=== PATIENT | female | born 1930 | race Caucasian/White ===

== ENCOUNTER 2017-03-05 08:22 | Inpatient (IN) ==
[2017-03-05] MEDS ORDERED: NS 1,000 ML IV ONE ×2 (08:43→13:13)
[2017-03-05] MEDS ORDERED: PROTONIX IV ONE (08:50)
[2017-03-05] MEDS ORDERED: SODIUM CHLORIDE 0.9% INJ ONE (08:50)
--- NOTE | 2017-03-05 08:57 | PROVIDER DOCUMENTATION ---
HPI-Abdominal Pain/GI Problem - General Chief Complaint: GI Bleed Stated Complaint: RECTAL BLEEDING Time Seen by Provider: 03/05/17 08:47 Source: patient, family Home Medications: Home Medication List Medication Instructions Recorded Confirmed Last Taken Type Insulin Aspart [Novolog Flexpen] 100 unit SQ DIRECTED 03/05/17 03/05/17 Unknown History Insulin Glargine,Hum.rec.anlog 1 dose SQ DIRECTED 03/05/17 03/05/17 Unknown History [Lantus Solostar] Levothyroxine [Synthroid] 88 microgm PO DAILY 03/05/17 03/05/17 Unknown History - History of Present Illness-ABD Nature of Presenting Problems: hx of bleeding in past has started to have conitnuous bleeding of clots and blood on asa no diverticulos hx hemorrhoids Abdominal Pain Onset Location: reports: other (none) Pain Radiation: reports: no radiation Quality of Pain: reports: none Severity in ED: reports: moderate Onset/Duration: reports: 4-6 hours ago Timing: reports: still present Activities at Onset: reports: sleep Exposure to sick contacts?: No Modifying Factors: improves with: nothing Associated Symptoms: reports: weakness Last BM: this morning Dark Stools Present?: reports: maroon, bright red blood Rectal Bleeding: reports: bleeding without stool # of Diarrhea Episodes: 5 Rectal Pain: reports: none # of Vomiting Episodes: 0 Emesis Description: reports: none Bruising or Bleeding Gums?: No Similar Symptoms Previously?: No Recently seen or treated by another doctor?: No Review of Systems - Adult - REVIEW OF SYSTEMS - ADULT Constitutional: reports: fatique Eyes: reports: no symptoms reported Ears, Nose, Mouth & Throat: reports: no symptoms reported Cardiovascular: reports: no symptoms reported Respiratory: reports: no symptoms reported Gastrointestinal: reports: see HPI Genitourinary: reports: no symptoms reported Musculoskeletal: reports: no symptoms reported Integumentary: reports: no symptoms reported Neurological: reports: no symptoms reported Psychiatric: reports: no symptoms reported Endocrine: reports: no symptoms reported Hematologic/Lymphatic: reports: no symptoms reported Allergic/Immunologic: reports: no symptoms reported Past History - Adult - PAST MEDICAL HISTORY-ADULT Review of Records: reports: Nursing Assessment Review, Medications Reviewed, Social history reviewed & non-contributory. Major Childhood Illnesses: reports: denies history Cardiovascular: reports: HTN Respiratory: reports: denies history Gastrointestinal: reports: GI bleed Genitourinary: reports: denies history Musculoskeletal: reports: denies history Neurological: reports: denies history Psychiatric: reports: denies history Endocrine/Immune: reports: Diabetes, thyroid disorder Diabetes Type: Type 2 Diabetes controlled by:: Insulin Dependent - PRIOR SURGERIES/PROCEDURES Surgical/Procedure History: reports: cholecystectomy, hysterectomy - FAMILY HISTORY Family History: reviewed, not pertinent - SOCIAL HISTORY Smoking: denies Substance Use: none/never Alcohol Use Frequency: never Physical Exam-General - PHYSICAL EXAM-ADULT Initial Vital Signs Reviewed: Yes - CONSTITUTIONAL General Appearance: appears well, alert, mild distress - EYES Eyes: PERRL/EOMI, pale conjunctivae - HEAD, EARS, NOSE, MOUTH & THROAT HENMT: normocephalic/atraumatic, moist mucous membranes, normal ENT inspection, TMs normal - NECK Neck: non-tender, full range of motion - RESPIRATORY Respiratory: lungs clear - CARDIOVASCULAR Cardiovascular: regular rate, rhythm - GASTROINTESTINAL (ABDOMEN) Abdominal Exam: soft - LYMPHATIC Lymphatic: no adenopathy - MUSCULOSKELETAL Back Exam: normal inspection Extremity: normal range of motion - SKIN Integumentary: pallor - NEUROLOGIC Neurologic: grossly normal - PSYCHIATRIC Psych/Mental Status: oriented x 3 Progress - PLAN OF CARE/RESULTS Progress/Plan/Lab Results: Vital Signs - 8 hr 03/05/17 08:33 Temperature 97.2 F L Pulse Rate 92 H Respiratory Rate 18 Blood Pressure 92/33 Orders Category Date Time Status CBC WITH DIFF [HEME] Stat Lab 03/05/17 08:47 Ordered COMPREHENSIVE METABOLIC PANEL [CHEM] Stat Lab 03/05/17 08:47 Ordered LRPC (RED CELLS) [BBK] Stat Lab 03/05/17 08:51 Ordered OCCULT BLOOD SCREEN STOOL PL Stat Lab 03/05/17 08:47 Uncollected PROTIME WITH INR PL [COAG] Stat Lab 03/05/17 08:[address] [COAG] Stat Lab 03/05/17 08:47 Ordered TYPE & SCREEN [BBK] Stat Lab 03/05/17 08:50 Ordered 0.9% Sodium Chloride Inj [Ns] 1,000 ml Med 03/05/17 08:43 Active IV 999 mls/hr Pantoprazole [Protonix] Med 03/05/17 08:50 Once 40 mg IV NOW ONE Sodium Chloride 0.9% Med 03/05/17 08:50 Once 10 ml INJ NOW ONE EKG [EKG] Stat Ther 03/05/17 08:47 Ordered Laboratory Tests 03/05/17 03/05/17 03/05/17 08:40 08:43 08:43 WBC 7.42 RBC 3.42 L Hgb 10.0 L Hct 31.1 L MCV 90.9 MCH 29.2 MCHC 32.2 L RDW Std Deviation 13.9 Plt Count 270 MPV 10.0 Immature Gran % (Auto) 0.1 Neut % (Auto) 85.9 H Lymph % (Auto) 10.0 L [place] % (Auto) 3.6 Eos % (Auto) 0.1 Baso % (Auto) 0.3 Immature Gran # (Auto) 0.01 Neut # (Auto) 6.37 Lymph # (Auto) 0.74 L [place] # (Auto) 0.27 Eos # (Auto) 0.01 Baso # (Auto) 0.02 PT INR APTT (Factor Assay) Sodium 138 Potassium 4.4 Chloride 104 Carbon Dioxide 22 L Anion Gap 11 BUN 27 H Creatinine 1.0 H Estimated GFR/1.73 m2 52 BUN/Creatinine Ratio 27 Glucose 258 H Calculated Osmolality 290 Calcium 8.6 L Total Bilirubin 0.30 AST 20 ALT 14 Alkaline Phosphatase 71 Total Protein 6.2 L Albumin 3.4 L Globulin 3.0 Albumin/Globulin Ratio 1.0 Stool Occult Blood POSITIVE A Blood Type Antibody Screen Crossmatch 03/05/17 03/05/17 08:43 08:43 WBC RBC Hgb Hct MCV MCH MCHC RDW Std Deviation Plt Count MPV Immature Gran % (Auto) Neut % (Auto) Lymph % (Auto) [place] % (Auto) Eos % (Auto) Baso % (Auto) Immature Gran # (Auto) Neut # (Auto) Lymph # (Auto) [place] # (Auto) Eos # (Auto) Baso # (Auto) PT 13.4 INR 0.99 APTT (Factor Assay) 29.3 Sodium Potassium Chloride Carbon Dioxide Anion Gap BUN Creatinine Estimated GFR/1.73 m2 BUN/Creatinine Ratio Glucose Calculated Osmolality Calcium Total Bilirubin AST ALT Alkaline Phosphatase Total Protein Albumin Globulin Albumin/Globulin Ratio Stool Occult Blood Blood Type O POSITIVE Antibody Screen NEGATIVE Crossmatch See Detail Result Diagrams: 03/05/17 08:43 03/05/17 08:43 - EKG 1 Time of EKG reading by physician:: 10:49 EKG Read and Signed by:: Davon Chauhan EKG Interpretation (*Must complete 3 of following elements*): Normal Rate: 90 Rhythm: sinus [place]: normal QRS: normal PA Interval: normal ST Wave: non-specific ST changes Departure - Departure Time of Disposition Decision: 10:50 DIAGNOSIS: Lower GI bleeding Disposition: HOME 01 Certified Medical Emergency: Emergent Condition: Stable
[2017-03-05 09:03] LABS: OCCULT BLOOD 1 POSITIVE (NEGATIVE)
[2017-03-05 09:11] LABS: ALBUMIN 3.4 g/dL (3.5-5.0); CALCIUM 8.6 mg/dL (8.8-10.2); POTASSIUM 4.4 mmol/L (3.5-5.1); TOTAL BILIRUBIN 0.3 mg/dL (0.20-1.00); TOTAL PROTEIN 6.2 g/dL (6.3-8.3)
[2017-03-05 09:17] LABS: INR 0.99 (0.86-1.15); PROTIME 13.4 Seconds (12.1-15.5); PTT PL 29.3 Seconds (22.6-43.9)
[2017-03-05 09:23] LABS: BASO% 0.3 % (0.0-0.8); EOS# 0.01 X1000 (0.0-0.7); EOS% 0.1 % (0.0-10.0); HEMATOCRIT 31.1 % (37.0-47.0); IMM GRAN# 0.01 X1000 (0.0-0.04); IMM GRAN% 0.1 % (0.0-0.5); LYMPH# 0.74 X1000 (1.2-3.4); MANUAL DIFF NEEDED? NO; MCH 29.2 PG (27-31); MCHC 32.2 g/dL (33-37); MCV 90.9 FL (81-99); MONO# 0.27 X1000 (0.11-0.59); MONO% 3.6 % (1.7-9.3); NEUT% 85.9 % (42.2-75.2); PLT 270 X1000 (130-400); RBC 3.42 XMIL (4.2-5.4)
--- NOTE | 2017-03-05 10:23 | EKG Report ---
Test Performed on : 03/05/2017 09:10:52 AM Test Reason : hypotension Blood Pressure : / mmHG Vent. Rate : 090 BPM Atrial Rate : 090 BPM P-R Int : 166 ms QRS Dur : 086 ms QT Int : 378 ms P-R-T Axes : 007 031 073 degrees QTc Int : 462 ms Normal sinus rhythm. Nonspecific ST abnormality Abnormal ECG When compared with ECG of 05-AUG-2007 06:18, T wave amplitude has decreased in Anterolateral leads Unconfirmed Result
[2017-03-05] MEDS ORDERED: PROTONIX 80 MG in NS 100 ML IV SCH (13:12)
--- NOTE | 2017-03-05 15:40 | HISTORY AND PHYSICAL ---
CHIEF COMPLAINT: Bright red blood per rectum. HISTORY OF PRESENT ILLNESS: Patient is a elderly female who presented to [facility]. Noted that she was in her usual state of health yesterday. She had no complaints cough or congestion, no shortness of breath. No fevers or chills. No GI or issues. However, this morning she awakened and when she went to the restroom she had copious amounts of bright red blood per rectum. She notes that she had blood clots in the toilet. She does state that she has done this before in the past, but that was several years ago. REVIEW OF SYSTEMS: As noted above. Denies any fevers, chills, cough, congestion. Denies any chest pain, palpitations. Denies any dysuria or any frequency. Denies any recent rectal bleeding. Does note that she had some previous bleeding several years ago. Denies any recent Advil, Aleve, aspirin, or ibuprofen usage. MEDICATIONS: NovoLog FlexPen, Lantus, and Synthroid. ALLERGIES: Difficult to obtain an allergy history, as Ms. Coffey notes that she is allergic to all pills of all types. PAST MEDICAL HISTORY: Remote history of GI bleed years ago, history of hypertension, diabetes, hypothyroidism. PAST SURGICAL HISTORY: History of cholecystectomy and hysterectomy. FAMILY HISTORY: Noncontributory. SOCIAL HISTORY: The patient does not have a primary care physician, by her own choice. She goes to a walk-in clinic. Sees Dr. Miranda for her diabetes. She denies smoking, denies any alcohol use. PHYSICAL EXAMINATION: VITAL SIGNS: Temperature 97.2 degrees, pulse 92, respiratory rate 18, blood pressure 92/33 initially and currently 110/70. GENERAL: Patient is awake, alert, oriented. She is in no respiratory distress. She is pleasant to talk with. HEENT: Normocephalic, atraumatic. REBECA. NECK: Supple. CARDIOVASCULAR: Regular rate. CHEST: Relatively clear. ABDOMEN: Soft, nondistended, nontender. No masses. No hepatosplenomegaly. EXTREMITIES: Moves all extremities well. NEUROLOGIC: No focal neurological changes. SKIN: Warm and dry. No rashes. DIAGNOSTIC DATA: WBC 7, hemoglobin and hematocrit 10 and 31. CMP essentially normal. Hemoccult positive. ASSESSMENT: 1. Lower gastrointestinal bleed, likely hemorrhoidal bleeding with bright red blood per rectum. 2. Hypertension in a patient currently with low blood pressure, although it has improved with IV fluids. 3. Mild anemia. Uncertain of her baseline. 4. Diabetes, type 2, currently on insulin. 5. Hypothyroidism. PLAN: We will admit the patient to the hospital. Will type and cross. Will transfuse if her hemoglobin and hematocrit drop. We will continue to follow. We will recheck and follow her hemoglobin and hematocrit went serial readings. Will continue her home medications, place on sliding scale insulin. Further orders as needed. cc: Mikey Oneil MD
[2017-03-05] MEDS ORDERED: HUMALOG (PARKWAY) SUBQ SCH (16:00)
[2017-03-05] MEDS ORDERED: TYLENOL PO PRN (17:05)
[2017-03-05] MEDS ORDERED: ZOFRAN IV PRN (17:05)
[2017-03-05] MEDS: HUMULIN R SUBQ SCH ×2 (17:14→23:15)
[2017-03-05] MEDS: CARAFATE LIQUID PO SCH ×2 (17:42→22:09)
[2017-03-05] MEDS: PROTONIX IV SCH (17:42)
[2017-03-05 18:34] LABS: HEMATOCRIT 24.8 % (37.0-47.0); HEMOGLOBIN 7.9 g/dL (12.0-16.0)
[2017-03-06 00:19] LABS: HEMATOCRIT 23.5 % (37.0-47.0); HEMOGLOBIN 7.6 g/dL (12.0-16.0)
--- NOTE | 2017-03-06 00:39 | Diag Imaging Result Document ---
PROCEDURE NAME: ABDOMEN/PELVIS W/WO CONTRAST - 03/05/2017 FINDINGS: Images are obtained prior to and following intravenous contrast administration. There is oral contrast administered. A dose-reduction protocol was used. No comparison exam. There are no substantial abnormalities of the liver, spleen, adrenal glands, or pancreas identified. The gallbladder is surgically absent. There is a 7 mm nonobstructing stone in the lower right kidney. There is no hydronephrosis. There are parapelvic cysts at the left kidney. There is some cortical thinning/scarring at the right kidney. The bilateral kidneys otherwise enhance homogeneously. There are a few mildly prominent abdominal retroperitoneal lymph nodes. There are lumbar spine degenerative changes noted. There is no evidence of bowel obstruction. The appendix by history is surgically absent. There is colonic diverticulosis which is most extensive along the descending and sigmoid colon. There is no evidence of diverticulitis. There is no abscess identified. There is no free air. Images of the pelvis otherwise show postsurgical changes of partial hysterectomy. There is a 1.5 cm calcification at the midline posterior inferior urinary bladder. This is obscured by intravenous contrast in the bladder lumen on the delayed images, which suggest that this represents a stone in the bladder. The urinary bladder bender do not appear thickened. There is no abnormal pelvic mass or fluid collection identified. IMPRESSION: 1. Nonobstructing stone in the right kidney. Mild right renal cortical thinning/scarring. Left renal parapelvic cysts. No hydronephrosis. 2. A few mildly enlarged abdominal retroperitoneal lymph nodes. 3. Colonic diverticulosis which is most extensive at the descending and sigmoid colon. No evidence of diverticulitis. 4. No bowel obstruction. No abscess. No free air. 5. A 1.5 cm stone in the urinary bladder.
[2017-03-06] MEDS: CARAFATE LIQUID PO SCH ×4 (02:23→20:23)
[2017-03-06] MEDS: NS 500 ML ONE ×2 (04:52)
[2017-03-06] MEDS: PROTONIX IV SCH ×2 (06:18→16:29)
[2017-03-06] MEDS: HUMULIN R SUBQ SCH ×3 (06:45→18:18)
[2017-03-06 09:02] LABS: MANUAL DIFF NEEDED? NO
[2017-03-06 09:14] LABS: BASO% 0.4 % (0.0-0.8); EOS# 0.06 X1000 (0.0-0.7); EOS% 1.3 % (0.0-10.0); HEMATOCRIT 29.6 % (37.0-47.0); HEMOGLOBIN 9.7 g/dL (12.0-16.0); LYMPH% 36.7 % (20.5-51.1); MCH 29.9 PG (27-31); MCHC 32.8 g/dL (33-37); MCV 91.4 FL (81-99); MONO# 0.39 X1000 (0.11-0.59); MONO% 8.4 % (1.7-9.3); MPV 9.7 FL (7.4-10.4); NEUT% 53.2 % (42.2-75.2); PLT 211 X1000 (130-400); RBC 3.24 XMIL (4.2-5.4)
[2017-03-06 09:20] LABS: INR 0.99; PROTIME 10.4 Seconds (9.2-11.7); PTT 25.9 Seconds (22.0-36.0)
[2017-03-06 09:27] LABS: AGAP 11; ALBUMIN 3.3 g/dL (3.5-5.0); ALKALINE PHOSPHATASE 57 U/L (32-104); BUN 21 mg/dL (8-22); CALCIUM 8.2 mg/dL (8.8-10.2); CHLORIDE 104 mmol/L (98-107); COSMO 283; GOT 30 U/L (10-30); GPT 14 U/L (10-36); MAGNESIUM 1.6 mg/dL (1.5-2.7); POTASSIUM 4.2 mmol/L (3.5-5.1); SODIUM 138 mmol/L (136-145); TCO2 23 mmol/L (25-35); TOTAL BILIRUBIN 0.47 mg/dL (0.20-1.00); TOTAL PROTEIN 6.3 g/dL (6.3-8.3)
[2017-03-06] MEDS: SYNTHROID PO SCH (10:33)
[2017-03-06 12:04] LABS: HEMATOCRIT 28.2 % (37.0-47.0); HEMOGLOBIN 9.4 g/dL (12.0-16.0)
--- NOTE | 2017-03-06 13:26 | PROGRESS NOTE ---
DATE: 03/06/2017 SUBJECTIVE: Patient notes that she is still having bright red blood per rectum. In fact, she had a bloody bowel movement this morning. OBJECTIVE: Vital Signs: Reviewed. Temperature 97 degrees, pulse 92, respiratory rate 18, blood pressure 104/48, satting 100% on room air. General: Patient well developed, elderly female who currently is in no respiratory distress. She is awake, alert. She is feeling fine. HEENT: Normocephalic, atraumatic. Neck: Supple. Cardiovascular: Regular rate. Chest: Relatively clear. Abdomen: Soft, nondistended. Extremities: Moves all extremities. Neurologic: No changes. Skin: Warm and dry. No rashes. LABORATORY DATA: Hemoglobin and hematocrit 9 on admit, dropped down to 7 last night and was transfused 2 units. Currently back at 9.7 and 29. CMP is normal. ASSESSMENT: 1. Anemia secondary to bleed. 2. Diabetes type 2. Currently on insulin. 3. Hypothyroidism. PLAN: We will consult GI. Patient likely will need endoscopy at this point. Further orders as needed. We will recheck her hemoglobin and hematocrit in the a.m. and follow. cc: Mikey Oneil MD
[2017-03-06] MEDS: SODIUM CHLORIDE 0.9% 10 ML ONE (16:29)
[2017-03-06 18:06] LABS: HEMATOCRIT 28.3 % (37.0-47.0); HEMOGLOBIN 9.3 g/dL (12.0-16.0)
[2017-03-07] MEDS: HUMULIN R SUBQ SCH ×5 (00:47→21:39)
[2017-03-07] MEDS: CARAFATE LIQUID PO SCH ×4 (03:30→21:35)
[2017-03-07] MEDS: SODIUM CHLORIDE 0.9% 10 ML ONE (04:57)
[2017-03-07] MEDS: PROTONIX IV SCH ×2 (04:57→16:54)
--- NOTE | 2017-03-07 05:34 | EKG Report ---
Test Performed on : 03/06/2017 05:06:41 AM Test Reason : chest pain Blood Pressure : / mmHG Vent. Rate : 090 BPM Atrial Rate : 090 BPM P-R Int : 182 ms QRS Dur : 080 ms QT Int : 358 ms P-R-T Axes : 031 042 080 degrees QTc Int : 437 ms Normal sinus rhythm. Normal ECG When compared with ECG of 05-MAR-2017 09:10, (Unconfirmed) No significant change was found Confirmed by Rhona SAUL, Carlos Manuel Freitas ([id number]) on 03/07/2017 8:59:42 AM
[2017-03-07 06:36] LABS: HEMATOCRIT 27.7 % (37.0-47.0); HEMOGLOBIN 8.9 g/dL (12.0-16.0); MCH 29.8 PG (27-31); MCHC 32.1 g/dL (33-37); MCV 92.6 FL (81-99); MPV 10.1 FL (7.4-10.4); RBC 2.99 XMIL (4.2-5.4)
[2017-03-07 06:50] LABS: AGAP 12; ALKALINE PHOSPHATASE 55 U/L (32-104); BUN 12 mg/dL (8-22); CALCIUM 8.3 mg/dL (8.8-10.2); CHLORIDE 105 mmol/L (98-107); COSMO 282; GOT 25 U/L (10-30); GPT 13 U/L (10-36); POTASSIUM 4.1 mmol/L (3.5-5.1); SODIUM 141 mmol/L (136-145); TCO2 24 mmol/L (25-35); TOTAL BILIRUBIN 0.43 mg/dL (0.20-1.00); TOTAL PROTEIN 5.5 g/dL (6.3-8.3)
[2017-03-07] MEDS: SYNTHROID PO SCH (08:24)
--- NOTE | 2017-03-07 12:15 | PROGRESS NOTE ---
DATE: 03/07/2017 SUBJECTIVE: Patient complained of 2 bloody bowel movements yesterday and 1 today. Her hemoglobin and hematocrit are stable. She received 1 unit of blood transfusion on 2016. Since the transfusion, her hemoglobin and hematocrit are mildly low, gone down from 29.6 to 27.7. The patient denies any abdominal pain, nausea, or vomiting. PHYSICAL EXAMINATION: Vital Signs: Temperature of 98 degrees, pulse rate of 86 , respiratory rate 18, blood pressure 139/49, saturating 98% on room air. General Appearance: Moderately built, moderately nourished, lying in bed, in no acute distress. HEENT: Pale. No icterus. Pupils equal, react to light. Neck: Supple. Abdomen: Soft, nontender, nondistended. Bowel sounds are heard. No rebound. Extremities: No cyanosis, clubbing, edema. Neurologic: She is alert, awake, oriented x3. LABORATORY DATA: Hemoglobin and hematocrit are 8.9 and 27.7, white count 3.9, platelet count of 178,000, MCV of 92.6. Sodium 140, potassium 4.1, chloride 105, bicarb 24, anion gap 12, BUN of 12, creatinine 0.7, glucose of 124, calcium is 8.3. Total bilirubin is 0.43, AST 25, ALT 13, alkaline phosphatase 55, total protein is 5.5, albumin 3. Glucose of 160. INR of 0.99, PT of 10.4, PTT of 25.9. Stool occult blood was positive. IMPRESSION AND PLAN: 1. Rectal bleeding. I suspect diverticular bleeding. 2. Anemia. 3. Diabetes type 2. 4. Hypothyroidism. RECOMMENDATIONS: 1. The patient continues to have ongoing GI bleed over the last 3 days and required blood transfusion. We discussed the options of doing colonoscopy as the patient has never had a colonoscopy in the past. The patient agreed to proceed with colonoscopy and we will schedule the patient for tomorrow. In this regard, patient will have a clear liquid diet today. We will give her a gallon of GoLYTELY today. Will be made NPO past midnight. The patient will continue to have serial hematocrits, and type and cross, and transfuse for hematocrit more than 27%. We will hold any kind of NSAIDs. 2. The patient will continue on GI prophylaxis with Protonix. 3. Since the patient has known diverticulosis on imaging, patient to avoid corn , nuts, and seeds in diet in future. On discharge, we will put the patient on Metamucil 1 or 2 tablespoons at bedtime. The above plan of care was discussed with the patient and all questions were answered. cc: Tono Peñaloza MD MTDD
[2017-03-07] MEDS ORDERED: GOLYTELY PO ONE (14:00)
--- NOTE | 2017-03-07 15:48 | CONSULTATION ---
DATE OF CONSULTATION: 03/06/2017 ATTENDING PHYSICIAN: Dr. Oneil. PRIMARY CARE DOCTOR: None. REASON FOR CONSULTATION: Rectal bleeding. HISTORY OF ILLNESS: Ms. Coffey is 86-year-old female who was admitted on 03/05/2017 to [place] [facility] with new onset of rectal bleeding. She noted rectal bleeding on Tuesday manager intensive care unit around 12:30 a.m., she had 5-6 bowel movements at that time. She denied any abdominal pain preceding rectal bleeding. She has never had colonoscopy in the past. She went to the ER in [place] and she had 1 bloody bowel movement in the ER. Last night and this morning she had 2 more bloody bowel movements but this morning the blood was older and darker in color. She denies any nausea, vomiting, abdominal pain in the moment. She has never had a colonoscopy in the past. She does take aspirin at home. She denies any previous history of worsening constipation. She had imaging done which showed evidence of severe diverticulosis in left colon. PAST MEDICAL HISTORY: Of diabetes, hypothyroidism, also includes remote history of GI bleeding years ago . SURGICAL HISTORY: Cholecystectomy, hysterectomy. FAMILY HISTORY: Noncontributory. SOCIAL HISTORY: She does not have a family care physician. She denies any history of alcohol, tobacco, illicit drugs. She lives at home with family. ALLERGIES: Unable to assess. MEDICATIONS IN THE HOSPITAL: Include Tylenol, regular insulin, Synthroid, Zofran, Protonix, Carafate, IV fluids. She is currently on clear liquid diet. REVIEW OF SYSTEMS: Denies any fevers, rigors, chills, chest pain, shortness of breath, dyspnea, denies any genitourinary complaints. Does have history of mild arthritis. Denies any neurologic complaints. Denies history of nausea, vomiting, vomiting blood or melena. She denies any history of use of NSAIDs. She does take aspirin at home for coronary disease prophylaxis. She is a diabetic and being managed with NovoLog insulin. PHYSICAL EXAMINATION: Vital Signs: Temperature 97.5 degrees, pulse rate 80, respiratory 18, blood pressure 131/48, saturating 99% room air, body weight of 180 pounds 9.6 ounces, BMI of 33 kg meter square. General Appearance: Moderately built, nourished, lying in bed in no acute. HEENT: Pale conjunctivae. No icterus. Pupils equal, react to light. Neck: Supple. Chest: Decreased. Cardiac: Regular rhythm. No murmur. Abdomen: Soft, nontender, nondistended. Bowel sounds. No rebound. No guarding. Extremities: No cyanosis, clubbing and edema. Neurologic: She is alert, awake, oriented. LABS: Hemoglobin and hematocrit is 9.4 and 28.2, white count 4.6, platelet count of 211,000, MCV of 91.4. INR 0.99, PT of 10.4, PTT of 25.9. Sodium 138, potassium 4.2, chloride 104, bicarb 29, anion gap 11, BUN of 21, creatinine 0.8, glucose of 184, calcium is 8.2, magnesium 1.6, total bilirubin is 0.47, AST 30, ALT 14, alkaline phosphatase 57, total protein 6.0, albumin 3.3. Stool occult blood was positive. CT scan of the abdomen, pelvis done on 03/05/2017 showed nonobstructing stone in the right kidney, no hydronephrosis, a few mildly enlarged abdominal retroperitoneal lymph nodes noted, colonic diverticulosis most extensive in the descending sigmoid colon, no evidence of diverticulitis, no bowel obstruction, no abscess no free air, 1.5 cm stone in the urinary bladder. IMPRESSION AND PLAN: 1. Painless rectal bleeding and CT findings of left-sided diverticulosis raising suspicion of diverticular bleeding. The patient has never had a colonoscopy in the past. 2. Anemia secondary to #1. 3. Kidney stones and right urinary bladder stones. 4. Diabetes. 5. Hypothyroidism. 6. Hypertension. RECOMMENDATIONS: 1. The patient's bleeding is already slowing down. She has received 1 unit of blood transfusion earlier today. She only had 1 bowel movement today which was bloody. 2. We are going to be hoping that she has a spontaneous hemostasis. But if we will keep a close eye on her hemoglobin and hematocrit and transfuse as needed if patient continues to have active GI bleeding we may pursue colonoscopy. The patient will add like to hold off on any colonoscopy unless is really needed. I discussed that with the patient that if she continues to have dropping hematocrit requiring more blood transfusion then we may end up doing colonoscopy. 3. We will continue on clear liquid diet for now. Will keep her on PPI for GI prophylaxis. 4. Further recommendation according to hospital course. cc: MD Tono Cohen MD
--- NOTE | 2017-03-07 16:18 | PROGRESS NOTE ---
DATE: 03/07/2017 SUBJECTIVE: Patient has no focal complaints. OBJECTIVE: Vital signs: Blood pressure 139/49, heart rate of 86, respiratory rate 18, temperature 98 degrees, 98% on room air. Cardiovascular: Regular rate and rhythm. Pulmonary: Bilateral breath sounds. Clear to auscultation. GI: Soft, nontender, nondistended. Bowel sounds are positive. LABORATORY DATA: Hemoglobin and hematocrit dropped to 8.9 and 27. Creatinine looks okay. White count 3.9, platelets 178,000. PROBLEM LIST: 1. Lower gastrointestinal bleed, likely diverticular. Will follow hemoglobin and hematocrit. Continue PPI. Plan is for endoscopy tomorrow or at least colonoscopy, at their discretion. May need EGD. 2. Type 2 diabetes. I think this is fairly well controlled. We will continue to monitor. 3. Hypothyroidism. Appears to be well controlled. We will continue to monitor as well. 4. Disposition. Pending her colonoscopy tomorrow and clinical course concerning her hemoglobin. cc: Adan Anthony MD
[2017-03-07 18:18] LABS: HEMATOCRIT 31.4 % (37.0-47.0); HEMOGLOBIN 10.4 g/dL (12.0-16.0)
[2017-03-08] MEDS: CARAFATE LIQUID PO SCH ×4 (02:00→22:22)
[2017-03-08] MEDS: PROTONIX IV SCH ×2 (05:12→18:11)
[2017-03-08 06:41] LABS: HEMATOCRIT 27.6 % (37.0-47.0); MCH 29.8 PG (27-31); MCHC 32.6 g/dL (33-37); MCV 91.4 FL (81-99); MPV 10.4 FL (7.4-10.4); RBC 3.02 XMIL (4.2-5.4)
[2017-03-08] MEDS: HUMULIN R SUBQ SCH ×4 (06:45→22:22)
[2017-03-08 06:54] LABS: AGAP 12; BUN 8 mg/dL (8-22); CALCIUM 8.1 mg/dL (8.8-10.2); CHLORIDE 105 mmol/L (98-107); COSMO 282; POTASSIUM 3.9 mmol/L (3.5-5.1); SODIUM 141 mmol/L (136-145); TCO2 24 mmol/L (25-35)
[2017-03-08 06:56] LABS: HEMOGLOBIN A1C 6.4 % (4.8-6.0)
[2017-03-08] MEDS: SYNTHROID PO SCH (09:58)
[2017-03-08] MEDS ORDERED: PROTONIX IV SCH (13:12)
[2017-03-08] MEDS ORDERED: SODIUM CHLORIDE 0.9% 10 ML ONE (13:32)
[2017-03-08] MEDS ORDERED: DIPRIVAN 1% ONE (14:19)
[2017-03-08] MEDS ORDERED: XYLOCAINE-MPF 2% ONE (14:31)
[2017-03-08 15:44] LABS: HEMATOCRIT 28.8 % (37.0-47.0); HEMOGLOBIN 9.2 g/dL (12.0-16.0)
--- NOTE | 2017-03-08 16:59 | OPERATIVE NOTE ---
PROCEDURE DATE: PROCEDURE: Colonoscopy and esophagogastroduodenoscopy. PREOP DIAGNOSIS: Gastrointestinal bleed. POSTOP DIAGNOSES: 1. Diverticulosis. 2. Small hiatal hernia. DESCRIPTION OF PROCEDURE: After informed consent and adequate intravenous sedation by Anesthesia, the scope introduced the esophagus. There is small hiatal hernia. No fresh or old blood seen. No ulcers or AVM seen. The scope was withdrawn. At this point digital rectal exam performed. Patient has small internal hemorrhoids. No active bleeding. Scope introduced all the way into the cecum. There was moderately severe diverticulosis but no evidence of any bleeding from anywhere. In fact I did not see any blood in the colon at all. Scope is withdrawn. The patient tolerated procedure, transported back to recovery in satisfactory condition. cc: Vicente Lora MD
--- NOTE | 2017-03-09 02:19 | PROGRESS NOTE ---
DATE: 03/08/2017 SUBJECTIVE: The patient has no complaints. No further bleeding. OBJECTIVE: Vital signs: Blood pressure 147/55, heart rate 83, respiratory rate 20, temperature 98.4. Cardiovascular: Regular rate and rhythm. Pulmonary: Bilateral breath sounds clear to auscultation. GI: Soft, nontender, nondistended. Bowel sounds were positive. LABORATORY DATA: Hemoglobin and hematocrit 10 and 31. Chemistries are okay. PROBLEM LIST: 1. Gastrointestinal bleed. He has had EGD and colonoscopy which have been unremarkable. Hemoglobin and hematocrit are fairly stable. Continue PPI. 2. Diabetes. Appears to be well controlled. Continue regular medications. 3. Hypothyroidism. Stable on current medications. DISPOSITION: Likely home on the if stable. cc: Adan Anthony MD
[2017-03-09] MEDS ORDERED: SODIUM CHLORIDE 0.9% 10 ML ONE (04:46)
[2017-03-09] MEDS: CARAFATE LIQUID PO SCH ×4 (04:58→23:09)
[2017-03-09] MEDS: PROTONIX IV SCH (04:59)
[2017-03-09] MEDS ORDERED: SODIUM CHLORIDE 0.9% INJ PRN (05:00)
[2017-03-09] MEDS: HUMULIN R SUBQ SCH ×4 (06:41→21:00)
[2017-03-09] MEDS: SYNTHROID PO SCH (08:44)
--- NOTE | 2017-03-09 13:58 | PROGRESS NOTE ---
DATE: 03/09/2017 SUBJECTIVE: Patient resting in bed. She denies any nausea, vomiting, vomiting blood or passing blood in the stools. She denies any abdominal pain. She denies any fever and chills. She is ready to be discharged. She is requesting a bedside commode as she has limited mobility and walks with a walker. OBJECTIVE: Vital signs: Temperature 97.9, pulse of 98, respiratory rate 18, blood pressure 140/67, saturating 98% room air. General Appearance: Moderately built, moderately nourished, lying in bed, in no acute distress. HEENT: Mild pallor. No icterus. Neck: Supple. Abdomen: Soft, nontender, nondistended. Bowel sounds are heard. No guarding or rebound. Extremities: No cyanosis or clubbing. Neurologic: She is alert, awake, oriented. LABORATORY: Hemoglobin and hematocrit is 9.2 and 28.8, white count 3.7, platelet count of 195,000. Sodium of 141, potassium 3.9, chloride 105, bicarb 24, anion gap 12, BUN of 8, creatinine 0.7, glucose 140, calcium 8.1, HbA1c 6.4. These labs are from yesterday. IMPRESSION AND PLAN: 1. Rectal bleeding, status post colonoscopy which showed diverticulosis with no active bleeding. The patient will continue on a high fiber diet, take fiber, no more than 25-30 g/24 hours. Avoid excessive corn, nuts, and seeds in diet and avoid constipation. The patient continue Metamucil 1-2 tablespoon at bedtime. 2. Anemia. Patient will be on iron-C 1 capsule b.i.d. and multivitamin once daily for 3 months. 3. Reflux disease. She will continue on omeprazole 20 mg daily for 6-12 weeks and then wean down to Zantac 150 mg at bedtime as needed. 4. Small hiatal hernia. Take small frequent meals. 5. The patient most likely will be going home per the primary care team. abatement worker is supposed to arrange for bedside commode. The above plan was discussed with the patient and the RN and all questions answered. cc: MD Adan Lazo MD
[2017-03-10] MEDS: PROTONIX IV SCH (04:47)
[2017-03-10] MEDS: CARAFATE LIQUID PO SCH ×2 (05:58→10:08)
[2017-03-10] MEDS: HUMULIN R SUBQ SCH (06:54)
[2017-03-10 07:09] LABS: HEMATOCRIT 29.1 % (37.0-47.0); HEMOGLOBIN 9.4 g/dL (12.0-16.0); MCH 29.7 PG (27-31); MCHC 32.3 g/dL (33-37); MCV 91.8 FL (81-99); MPV 10.2 FL (7.4-10.4); RBC 3.17 XMIL (4.2-5.4)
[2017-03-10 08:36] VITALS: BP 132/60
[2017-03-10] MEDS: SYNTHROID PO SCH ×2 (10:08→10:12)
--- NOTE | 2017-03-10 13:55 | DISCHARGE SUMMARY ---
ADMISSION DATE: 03/05/2017 DISCHARGE DATE: 03/09/2017 CONSULTATIONS: Dr. Tono Peñaloza with gastroenterology. PERTINENT PROCEDURES: 1. Abdomen and pelvis CT showed nonobstructing stone in the right kidney. Mild right renal cortical thickening and scarring. Left renal peripelvic cyst. No hydronephrosis. Mildly enlarged abdominal and retroperitoneal lymph nodes. Colonic diverticulosis which is more extensive in the descending and sigmoid colon. No evidence of diverticulitis. No bowel obstruction. No abscess. No free air. A 1.5 cm stone in the urinary bladder. 2. Colonoscopy and EGD by Dr. Lora. DISCHARGE DIAGNOSES: 1. Rectal bleeding status post colonoscopy which showed diverticulosis with no active bleeding. Patient to continue on a high-fiber diet. Take fiber, no more than 25 to 30 g every 24 hours. Avoid excessive corn, nuts, seeds in diet and avoid constipation. Continue Metamucil 1-2 tablespoons at bedtime. 2. Anemia. Patient will be on Icar C b.i.d. and MVI daily for 3 months. 3. Gastroesophageal reflux disease. Patient will continue on Prilosec daily for 6-12 weeks and then wean to Zantac 150 mg at bedtime as needed. 4. Small hiatal hernia. The patient will need to take small frequent meals. 5. Gastrointestinal bleed. EGD and colonoscopy have been unremarkable. Hemoglobin and hematocrit have been stable. 6. Diabetes, well controlled. Continue regular medications. 7. Hypothyroidism. Continue patient's medications. HOSPITAL COURSE: Ms. Coffey is an 86-year-old female, who presented to [facility] ED after going to the restroom and noted copious amounts of bright red blood per rectum. She also noted blood clots in the toilet. She carries a remote history of GI bleeding years ago, hypertension, diabetes, and hypothyroidism. The patient was transferred to [facility] for a GI consult. She was started on IV fluids and monitored her hemoglobin and hematocrit closely and started on a PPI. She did receive 1 unit of PRBCs. She has had a bowel movement at the hospital which was bloody. She did undergo an EGD and colonoscopy with Dr. Lora. She was found to have a small hiatal hernia. No fresh or old blood was seen. No ulcers or AVMs. The patient has small internal hemorrhoids but no active bleeding. There was moderately severe diverticulosis but no evidence of bleeding from anywhere. She has not had any further bleeding. The patient will maintain a high-fiber diet and take fiber no more than 25 to 30 g in 24 hours. She will avoid excessive corn, nuts, seeds in her diet and avoid constipation and continue Metamucil 1-2 tablespoons at bedtime. She will continue on Icar C b.i.d. and multivitamins once daily for 3 months. She will be on Prilosec 20 mg p.o. daily for 6-12 weeks and then wean down to Zantac 150 at bedtime as needed. For her small hiatal hernia, she will need to take small frequent meals. Social work is arranging a bedside commode for the patient. She will follow up with Dr. Peñaloza. Patient will need to find a primary care physician and closely follow with them in 7-10 days. VITAL SIGNS: Temperature is 97.9 degrees, heart rate 93, respirations 18, blood pressure 143/67, O2 is 98% on room air. DISCHARGE DIET: GI soft. DISCHARGE MEDICATIONS: 1. NovoLog FlexPen 100 unit subcutaneously as directed. 2. Lantus SoloSTAR 1 dose subcutaneously as directed. 3. Synthroid 88 mcg p.o. daily. 4. MiraLAX 17 g p.o. daily. DISCHARGE INSTRUCTIONS: Patient can return to the ED for any worsening symptoms. DISCHARGE TIME: 30 minutes. Dictated by JOSSELYN Galicia for Francisco Mas MD Addendum: I personally evaluated and examined the patient in conjunction to the SENIOR BUSINESS MANAGER and agreed with her plans and disposition. ERMELINDA
--- NOTE | 2017-03-11 08:10 | DISCHARGE SUMMARY ---
ADMISSION DATE: 03/05/2017 DISCHARGE DATE: 03/10/2017 ADDENDUM: The patient was discharged on 03/09/2017; however, the patient did not have a ride home so she was kept for 1 more day with no acute events overnight and the patient is still appropriate for discharge today PHYSICAL EXAMINATION: Vital signs: Temperature is 97.8 degrees, heart rate 81 , respirations 18, blood pressure 132/60, O2 is 98% on room air. Dictated by JOSSELYN Galicia for Francisco Mas MD MTDD
== END 2017-03-10 15:22 | disposition home health service (06) ==
LOC: P.ED 08:22 → SUATTDRO 16:23 → 3N 16:23
PROVIDERS: ATTEND Internal Medicine